=== PATIENT | female | born 1955 | race Caucasian/White ===

== ENCOUNTER 2024-04-27 06:59 | Day surgery (SDC) | payer MEDICARE, SELFPAY ==
--- NOTE | 2024-04-26 10:58 | HO.ANESPROP2 ---
Documented by User: Lori Patten NP 04/26/24 10:58 HPI - Anesthesia Eval Consult details Narrative: 69yo F for Colonoscopy Afib, no OAC PMFSH Past Medical History Medical History Afib Anxiety Depression JOSE (obstructive sleep apnea) Elevated cholesterol HTN (hypertension) Surgical History Surgical History Hx of hysterectomy Hx of colonoscopy Social History Social History Household Members Other:: cares for disabled brother Are you a primary acute care nurse practitioner to a significant other at home: No Do you presently have visiting nurse or other home services: No Patient Tobacco Use Status: Never used Tobacco Meds Allergies Allergy/AdvReac Type Severity Reaction Status Date / Time No Known Allergies Allergy Verified 04/27/24 07:17 Home Medications ?Medication ?Instructions ?Recorded ?Confirmed ?Last Taken ?Type Aspir-81 04/25/24 04/25/24 04/20/24 History atorvastatin 20 mg tablet 20 mg PO DAILY 04/25/24 04/25/24 04/27/24 History diltiazem HCl 180 mg 180 mg PO DAILY 04/25/24 04/25/24 04/27/24 History capsule,extended release 24 hr sertraline 50 mg tablet 75 mg PO DAILY 04/25/24 04/25/24 04/27/24 History Assessment and Plan Assessment Anesthesia Assessment: Chart Reviewed Documented by User: Rhys Flores MD 04/27/24 08:33 PMFSH Past Medical History Medical History Afib Anxiety Depression JOSE (obstructive sleep apnea) Elevated cholesterol HTN (hypertension) Family History Family history of problems with anesthesia: No Surgical History Surgical History Hx of hysterectomy Hx of colonoscopy History of Problems with Anesthesia: No Social History Social History Household Members Other:: cares for disabled brother Are you a primary acute care nurse practitioner to a significant other at home: No Do you presently have visiting nurse or other home services: No Patient Tobacco Use Status: Never used Tobacco Meds Allergies Allergy/AdvReac Type Severity Reaction Status Date / Time No Known Allergies Allergy Verified 04/27/24 07:17 Home Medications ?Medication ?Instructions ?Recorded ?Confirmed ?Last Taken ?Type Aspir-81 04/25/24 04/25/24 04/20/24 History atorvastatin 20 mg tablet 20 mg PO DAILY 04/25/24 04/25/24 04/27/24 History diltiazem HCl 180 mg 180 mg PO DAILY 04/25/24 04/25/24 04/27/24 History capsule,extended release 24 hr sertraline 50 mg tablet 75 mg PO DAILY 04/25/24 04/25/24 04/27/24 History Exam Airway Mallampati Class: II TM Dist: <=3cm Neck ROM: Full Loose/Missing/Broken Teeth: No Heart: ok Lungs: ok, SpO2 95% room air Assessment and Plan Assessment Anesthesia Assessment: Anesthesia Plan Discussed Final Anesthetic Review Family History of Problems with Anesthesia: No History of Problems with Anesthesia: No NPO: Yes ASA Class: III Final Preanesthetic Review: No Changes in Pt Med Stat, Meds/Allgs Chart Reviewed, Consent Obtained/Reviewed and Anes Risks/Benef Reviewed Patient Risk: High Procedure Risk: Low Anesthetic Plan Anesthetic Plan: MAC: and Agree w/ Assess. and Plan Disposition: Standard PACU
[2024-04-27 07:03] VITALS: BMI 52.3
[2024-04-27] MEDS: Lactated Ringers 1,000 ML 100 ML IVCONT (07:22)
[2024-04-27 07:26] VITALS: BP 160/91; PULSE 84; RESP 18; TEMP 36.7; O2SAT 95
--- NOTE | 2024-04-27 08:08 | MHC.SHP ---
Pre-Procedural Eval Section A - 24 Hr Update-Section A only Date of Service: 04/27/24 Section B - Complete if H&P > 30 days Chief Complaint: Encounter for screening for malignant neoplasm of Details of Present Illness: see H&P no changes Relevant Family History (Specify if Yes): No Relevant Social History: None Present Medications: None Medical History: No relevant PMH History of Previous Operations: No relevant previous surgery Allergies: Allergies Allergy/AdvReac Type Severity Reaction Status Date / Time No Known Allergies Allergy Verified 04/27/24 07:17 Review of Systems Sugical H&P ROS: Negative: Constitution, Cardiovascular, Respiratory, Neurological, Psychiatric, Hem-Onc, Allergic/Immunologic, Gastrointestinal, Genitourinary, Musculoskeletal, Integumentary, Endocrine and Eyes/Ears/Nose/Throat Exam Surgical H&P Exam: Normal: HEENT, Normal: Heart, Normal: Lungs, Normal: Extremities, Normal: Abdomen, Normal: Skin and Normal: Neurological Plan Diagnosis/Plan: Unchanged I have reviewed the history and physical and performed a pertinent physical examination on my patient. No changes have occurred unless specified. Time Spent With Patient Time: Total time managing care of this patient today ____ minutes.
[2024-04-27 08:52] VITALS: BP 99/55; PULSE 69; RESP 20; TEMP 36.8; O2SAT 92
--- NOTE | 2024-04-27 08:56 | P.CONAN_ITS ---
HPI - Anesthesia Eval Consult details Narrative: For colonoscopy [facility] Past Medical History Medical History Afib Anxiety Depression JOSE (obstructive sleep apnea) Elevated cholesterol HTN (hypertension) Family History Family history of problems with anesthesia: No Surgical History Surgical History Hx of hysterectomy Hx of colonoscopy History of Problems with Anesthesia: No Social History Social History Household Members Other:: cares for disabled brother Are you a primary care consultant to a significant other at home: No Do you presently have visiting nurse or other home services: No Patient Tobacco Use Status: Never used Tobacco Meds Allergies Allergy/AdvReac Type Severity Reaction Status Date / Time No Known Allergies Allergy Verified 04/27/24 07:17 Active Medications: Current Medications Lactated Ringer's (Lr) 1,000 mls @ 100 mls/hr IVCONT .Q10H NICHOLAS Last Admin: 04/27/24 07:22 Dose: 100 mls/hr Naloxone HCl (Naloxone Hcl 0.4 Mg/Ml Vial) 0.04 mg IVPUSH Q5M PRN PRN Reason: Excessive sedation or RR < 8 Home Medications ?Medication ?Instructions ?Recorded ?Confirmed ?Last Taken ?Type Aspir-81 04/25/24 04/25/24 04/20/24 History atorvastatin 20 mg tablet 20 mg PO DAILY 04/25/24 04/25/24 04/27/24 History diltiazem HCl 180 mg 180 mg PO DAILY 04/25/24 04/25/24 04/27/24 History capsule,extended release 24 hr sertraline 50 mg tablet 75 mg PO DAILY 04/25/24 04/25/24 04/27/24 History Exam Height,Weight and Vital Signs: Height 5 ft 1 in Weight 125.645 kg Last Vital Signs Temp 98.3 F 04/27/24 08:52 Pulse 69 04/27/24 08:52 Resp 20 04/27/24 08:52 BP 99/55 L 04/27/24 08:52 Pulse Ox 92 04/27/24 08:52 O2 Del Method Room Air 04/27/24 08:52 Assessment and Plan Final Anesthetic Review Family History of Problems with Anesthesia: No History of Problems with Anesthesia: No
[2024-04-27 09:07] VITALS: BP 151/84; PULSE 68; RESP 20; TEMP 36.9; O2SAT 97
--- NOTE | 2024-04-27 09:30 | OP_ITS ---
DATE OF SERVICE: 04/27/2024 SURGEON: Robbie Valdes MD INDICATIONS: Colon cancer screening and prior history of adenomatous colon polyps. PREOPERATIVE DIAGNOSIS: POSTOPERATIVE DIAGNOSIS: PROCEDURE PERFORMED: Colonoscopy to the terminal ileum with snare polypectomy and biopsy. ESTIMATED BLOOD LOSS: COMPLICATIONS: ANESTHESIA: Monitored anesthesia care. ASSISTANTS: SPECIMENS: DESCRIPTION OF PROCEDURE: History and physical performed. The risks and benefits of the procedure were explained to the patient. Informed consent was obtained. The patient was placed in the left lateral decubitus position. A digital rectal exam was performed and was found to be normal. The Olympus pediatric colonoscope was introduced into the rectum and advanced to the cecum. The cecum was identified by transillumination, palpation, and identification of ileocecal valve. Examination was performed. The scope was removed. She tolerated the procedure well and was taken to recovery in stable condition. FINDINGS: The terminal ileum was briefly glimpsed and appeared normal. The visualized colonic mucosa was normal. The quality of the prep was good. Two polyps in the right colon and cecum measuring less than 5 mm, were removed with biopsy forceps. A 10 mm polyp at 40 cm was removed with a hot snare and recovered via suction. No other polyps were identified. There was mild sigmoid diverticulosis. Retroflexed examination showed moderate-sized internal hemorrhoids. IMPRESSION: Colon polyps. RECOMMENDATION: Follow up with the biopsy results. MD JUSTINE Perdue/LOUISE / [id number]
== END 2024-04-27 09:35 | disposition home or self-care (01) ==
PROVIDERS: PCP Internal Medicine Geriatric Medicine; Visit Provider Internal Medicine Gastroenterology
PROC: 0DJD8ZZ Inspection of Lower Intestinal Tract, Via Natural or Artificial Opening Endoscopic (ICD-10-PCS; CPT 45378; principal; 2024-04-27 08:20)
DX: Z12.11 Encounter for screening for malignant neoplasm of colon (principal); D12.0 Benign neoplasm of cecum; D12.5 Benign neoplasm of sigmoid colon; D36.9 Benign neoplasm, unspecified site; K57.30 Diverticulosis of large intestine without perforation or abscess without bleeding; K64.8 Other hemorrhoids; Z86.010 Personal history of colon polyps; I10 Essential (primary) hypertension; E78.5 Hyperlipidemia, unspecified; I48.0 Paroxysmal atrial fibrillation; Z99.89 Dependence on other enabling machines and devices; Z79.82 Long term (current) use of aspirin; Z79.899 Other long term (current) drug therapy; Z79.02 Long term (current) use of antithrombotics/antiplatelets
CPT/HCPCS: 45385; 45380; 88305; J2704